=== PATIENT | female | born 1980 | race Caucasian/White ===

== ENCOUNTER → 2018-11-11 | Outpatient (CLI) | payer OTHER ==
[2014-12-31 14:00] VITALS: BP 122/74
[~2018-11-11] MED LIST: PREN1TAB58 PO
--- NOTE | 2018-11-11 14:30 | RAD ---
Two-view chest dated 11/11/2018. No comparison available. Clinical data indication: Cough. Shortness of breath. FINDINGS: PA and lateral views obtained. Heart and mediastinal contours are within normal limits. Lungs are clear without focal consolidation. Vascular interstitium within normal limits. No pleural effusion or pneumothorax. IMPRESSION: No acute radiographic abnormality. Electronically signed by: Elfego Messer MD (11/11/2018 2:27 PM) [id number]
== END | disposition home or self-care (01) ==
LOC: RAD 13:46
PROVIDERS: ATTEND Internal Medicine Pulmonary Disease
DX: R05 Cough (principal); R06.02 Shortness of breath
CPT/HCPCS: 71046